=== PATIENT | female | born 1965 | race Caucasian/White ===

== ENCOUNTER 2017-01-07 18:29 | Emergency (ER) | payer BC ==
[2017-01-07 18:59] VITALS: BP 124/78
== END 2017-01-07 19:39 | disposition left against medical advice (07) ==
LOC: UCCORT 18:29
DX: R69 Illness, unspecified (principal); Z53.21 Procedure and treatment not carried out due to patient leaving prior to being seen by health care provider

== ENCOUNTER 2018-08-06 15:37 | Emergency (ER) | payer BC ==
[2018-08-06 16:10] VITALS: BP 152/94
--- NOTE | 2018-08-06 18:03 | UC ---
Throat Pain/Nasal Tera HPI - HPI Summary HPI Summary: Per contract specialist ""I feel like i have a sinus infection" c/o sore throat, chest congestion, headache, and sinus pressure x 1 week. " -has h/o sinus infectiosn and feels similar. + b/l cheeks and teeth hurt. usually uses zpack w/ good results. -Denies any history of arrhythmias or liver disease. + Asthma. Uses albuterol as needed. Last use was this morning. Never needed daily steroid inhalers. Has used oral prednisone for similar symptoms. Feels wheezing in her chest and tightness and not able to get a deep breath. - History of Current Complaint Chief Complaint: UCGeneralIllness Stated Complaint: SINUS,CHEST CONGESTION Time Seen by Provider: 08/06/18 17:55 Hx Last Menstrual Period: n/a Pain Intensity: 6 - Allergies/Home Medications Allergies/Adverse Reactions: Allergies Allergy/AdvReac Type Severity Reaction Status Date / Time Latex, Natural Rubber Allergy Itching Verified 08/06/18 16:06 nut - unspecified Allergy Swelling Verified 08/06/18 16:06 Of Face,Lips,& Throat wheat extract Allergy Wheezing Uncoded 08/06/18 16:06 Home Medications: Home Medications Montelukast Sodium TAB* [Singulair 10 MG TAB*] 10 mg PO DAILY 08/06/18 [History Confirmed 08/06/18] guaiFENesin LIQ* [Robitussin*] 10 ml PO Q4H PRN 08/06/18 [History Confirmed 07/24] PMH/Surg Hx/FS Hx/Imm Hx Previously Healthy: Yes Respiratory History: Asthma - Surgical History Surgical History: Yes Surgery Procedure, Year, and Place: HYSTERECTOMY, SHOULDER SURGERY, [facility]OT[facility] REPAIR - Social History Alcohol Use: Occasionally Substance Use Type: None Smoking Status (MU): Former Smoker Type: Cigarettes Amount Used/How Often: 5 cigarettes daily Review of Systems All Other Systems Reviewed And Are Negative: Yes Constitutional: Positive: Negative Skin: Positive: Negative Eyes: Positive: Negative ENT: Positive: Dental Pain, Nasal Discharge, Sinus Congestion, Sinus Pain/ Tenderness Respiratory: Positive: Cough, Other - wheezing Cardiovascular: Positive: Negative Gastrointestinal: Positive: Negative Genitourinary: Positive: Negative Motor: Positive: Negative Neurovascular: Positive: Negative Musculoskeletal: Positive: Negative Neurological: Positive: Negative Psychological: Positive: Negative Is Patient Immunocompromised?: No Physical Exam Triage Information Reviewed: Yes Appearance: Ill-Appearing - mild. Vital Signs: Initial Vital Signs Temp 98.3 F 08/06/18 16:05 Pulse 106 08/06/18 16:05 Resp 15 08/06/18 16:05 BP 152/94 08/06/18 16:05 Pulse Ox 98 08/06/18 16:05 Eye Exam: Normal ENT: Positive: Pharynx normal, Nasal congestion, Nasal drainage, TMs normal, Sinus tenderness, Uvula midline. Negative: TM bulging, TM dull, TM red, Tonsillar swelling, Tonsillar exudate Dental Exam: Normal Neck exam: Normal Neck: Positive: Supple, Nontender, No Lymphadenopathy Respiratory Exam: Normal Respiratory: Positive: No respiratory distress, No accessory muscle use, Decreased breath sounds, Wheezing - b.l, Expiration. Negative: Crackles, Rhonchi, Stridor Cardiovascular Exam: Normal Cardiovascular: Positive: RRR Abdominal Exam: Normal Musculoskeletal Exam: Normal Neurological Exam: Normal Psychological Exam: Normal Skin Exam: Normal Throat Pain/Nasal Course/Dx - Course Course Of Treatment: -denies any issues w/ zpack./ other meds cause GI upset. - aware of risl of arythmia & liver disease adn resistnce w/ zpack. - Differential Dx/Diagnosis Differential Diagnosis/HQI/PQRI: Pharyngitis, Tonsillitis, URI Provider Diagnosis: Sinusitis Discharge - Sign-Out/Discharge Documenting (check all that apply): Patient Departure All imaging exams completed and their final reports reviewed: No Studies - Discharge Plan Condition: Stable Disposition: HOME Prescriptions: Azithromyxin DREW (NF) [Z-Drew (Zithromax) 250 mg tabs #6] 250 mg PO .ZPAK INSTRUCTIONS #6 tab methylPREDNISolone [Medrol Dosepak 4 MG*] 4 mg PO DAILY #1 drew Patient Education Materials: Sinusitis (ED) Referrals: No Primary Care Phys,NOPCP [Primary Care Provider] - Additional Instructions: -You can follow-up with her primary care physician in 1-[address] Marina Raygoza. -Using saline rinse such as a netti pot can be helpful. -Make sure to take a probiotic daily while on antibiotics to help prevent a potential complication of antibiotic use called c diff. Some well known brands that can be found OTC are florastor, align and colon health. Make sure to complete the entire prescription unless advised otherwise by your health care provider. -We discussed risks of prednisone including but not limited to anxiety, agitation, insomnia, GI upset, elevated blood pressures and blood sugar readings , adrenal crisis and avascular necrosis of the hip. - Billing Disposition and Condition Condition: STABLE Disposition: Home
== END 2018-08-06 18:12 | disposition home or self-care (01) ==
LOC: UCCORT 15:37
DX: J32.9 Chronic sinusitis, unspecified (principal); J02.9 Acute pharyngitis, unspecified; R51 Headache; R09.89 Other specified symptoms and signs involving the circulatory and respiratory systems; J45.909 Unspecified asthma, uncomplicated; Z79.899 Other long term (current) drug therapy; Z91.040 Latex allergy status; Z91.018 Allergy to other foods; Z87.891 Personal history of nicotine dependence
CPT/HCPCS: 99212; G0463